=== PATIENT | female | born 1995 | race Hispanic/Latino ===

== ENCOUNTER 2017-06-25 06:13 | Observation (INO) | payer OTHER ==
[2017-06-25 06:42] VITALS: BP 153/72; TEMP 98.9; O2SAT 100
[2017-06-25 07:19] VITALS: RESP 16
[2017-06-25] MEDS ORDERED: Sodium Chloride 0.9% 1,000 ML IV STA (07:32)
--- NOTE | 2017-06-25 07:40 | ED PDOC ---
HPI: Hypertension/Hypotension Time Seen by Provider: 06/25/17 07:07 Chief Complaint (Nursing): Anxiety Chief Complaint (Provider): palpitations History Per: Patient History/Exam Limitations: no limitations Onset/Duration Of Symptoms: Hrs Current Symptoms Are (Timing): Gone Now Additional History Per: Patient Additional Complaint(s): The patient is a 22yo female, rpesents to the ED for evaluation of "heart racing " starting around 2am and lasting a couple hours. She reports she had similar symptoms in the past and 2 years ago, was evaluated and had an echocardiogram, stress test which were both normal. Patient states she usually feels these symptoms when drinking but denies any alcohol consumption today. She reports associated shortness of breath, nausea, an episode of diarrhea, vomiting and fever. She offers no additional medical complaints. Past Medical History Reviewed: Historical Data, Nursing Documentation, Vital Signs Vital Signs: Last Vital Signs Temp 98.9 F 06/25/17 06:36 Pulse 95 H 06/25/17 07:07 Resp 16 06/25/17 07:07 BP 153/72 H 06/25/17 06:36 Pulse Ox 100 06/25/17 07:07 - Medical History PMH: Depression - Surgical History Surgical History: No Surg Hx - Family History Family History: States: No Known Family Hx - Social History Current smoker - smoking cessation education provided: No Alcohol: None Drugs: Denies - Home Medications Home Medications: Ambulatory Orders Medication Instructions Recorded Sertraline [Zoloft] 50 mg PO DAILY 06/25/17 - Allergies Allergies/Adverse Reactions: Allergies Allergy/AdvReac Type Severity Reaction Status Date / Time Penicillins Allergy RASH Verified 06/25/17 06:35 Review of Systems ROS Statement: Except As Marked, All Systems Reviewed And Found Negative Constitutional: Negative for: Fever Cardiovascular: Positive for: Palpitations Respiratory: Positive for: Shortness of Breath Gastrointestinal: Positive for: Nausea, Diarrhea (1 episode). Negative for: Vomiting Physical Exam - Reviewed Nursing Documentation Reviewed: Yes Vital Signs Reviewed: Yes - Physical Exam Appears: Positive for: Non-toxic, No Acute Distress Head Exam: Positive for: ATRAUMATIC, NORMAL INSPECTION, NORMOCEPHALIC Skin: Positive for: Warm, Dry Eye Exam: Positive for: Normal appearance Neck: Positive for: Supple Cardiovascular/Chest: Positive for: Regular Rate, Rhythm, Tachycardia Respiratory: Positive for: Normal Breath Sounds. Negative for: Respiratory Distress Gastrointestinal/Abdominal: Positive for: Soft. Negative for: Tenderness Neurologic/Psych: Positive for: Alert, Oriented. Negative for: Motor/Sensory Deficits - Laboratory Results Result Diagrams: 06/25/17 08:25 06/25/17 08:25 - ECG ECG: Positive for: Interpreted By Me, Viewed By Me ECG Rhythm: Positive for: Sinus Rhythm, Right Bundle Branch Block (incomplete). Negative for: ST/T Changes Rate: 97 O2 Sat by Pulse Oximetry: 100 (RA) Pulse Ox Interpretation: Normal Medical Decision Making Medical Decision Making: Time: 714 Impression: Palpitations Plan: -- Labs -- EKG -- IV Fluids -- Zofran 4mg IV -- CT Chest Reassess Time: 799 Patient to be placed in ED observation pending ER workup. Scribe Attestation: Documented by Sarah Pelaez acting as a scribe for Kristina Mei MD. Provider Attestation: All medical record entries made by the Scribe were at my direction and personally dictated by me. I have reviewed the chart and agree that the record accurately reflects my personal performance of the history, physical exam, medical decision making, and the department course for this patient. I have also personally directed, reviewed, and agree with the discharge instructions and disposition. ED OBSERVATION Date of observation admission: 06/25/17 Time of observation admission: 08:00 - Observation admission statement Patient is being placed in observation because:: Patient with complaints of "heart racing" - Goals of Observation Goals of observation are:: imaging studies, labs results - Progress Note Progress Note: 06/25/17 08:06 Chest x-ray impression: No active disease. 06/25/17 09:36 Patient resting in room, no acute distress. 06/25/17 11:00 --Patient is resting comfortably. Vitals are stable 06/25/17 12:30 --Patient is currently resting, awaiting chest CT results. 06/25/17 14:36 CT CHEST FINDINGS: PULMONARY ARTERIES: Unremarkable. No pulmonary embolism. AORTA: No acute findings. No thoracic aortic aneurysm. LUNGS: Unremarkable. No nodule, mass or pulmonary consolidation. PLEURAL SPACES: Unremarkable. No effusion or pneuomothorax. HEART: Unremarkable. No cardiomegaly. No significant pericardial effusion. LYMPH NODES: No lymphadenopathy. Thoracic inlet is unremarkable. Axillary regions show no evidence of adenopathy. No retrocrural adenopathy is seen. BONES, CHEST WALL: Unremarkable. No fracture or destructive lesion OTHER FINDINGS: Visualized esophagus is unremarkable. Visualized portions of the upper abdomen are within normal limits. IMPRESSION: No CT scan evidence of pulmonary embolism. No evidence of focal alveolar infiltrate. --Patient was given copy of labs and imaging to take to her doctor. 06/25/17 14:43 --Patient was offered crisis evaluation for her anxiety and she declined, stating that she has people at home in [place] to talk to. --Patient is stable for discharge home Disposition - Clinical Impression Clinical Impression: Palpitations - Patient ED Disposition Is Patient to be Admitted: No Counseled Patient/Family Regarding: Studies Performed, Diagnosis, Need For Followup - Disposition Disposition: Routine/Home Disposition Time: 08:00 Condition: STABLE - POA Present On Arrival: None
--- NOTE | 2017-06-25 08:08 | RAD ---
HISTORY: Palpitations COMPARISON: No prior. TECHNIQUE: Chest PA and lateral FINDINGS: LUNGS: No active pulmonary disease. PLEURA: No significant pleural effusion identified. No pneumothorax apparent. CARDIOVASCULAR: Normal. OSSEOUS STRUCTURES: Minor scoliosis is seen. VISUALIZED UPPER ABDOMEN: Normal. OTHER FINDINGS: None. IMPRESSION: No active disease.
[2017-06-25 08:44] LABS: BASO % 0.1 % (0.0-2.0); EOS % 0.2 % (0.0-4.0); HEMATOCRIT 41.8 % (34.0-47.0); LYMPH # 1.4 K/uL (1.0-4.3); LYMPH % 17.2 % (20.0-40.0); MEAN CELL VOLUME 91.3 fl (81.0-99.0); MEAN CORPUSCULAR HEMOGLOBIN 30.1 pg (27.0-31.0); MEAN PLATELET VOLUME 8.4 fl (7.2-11.7); MONO # 0.4 K/uL (0.0-0.8); MONO % 5.1 % (0.0-10.0); NEUT # 6.3 K/uL (1.8-7.0); NEUT % 77.4 % (50.0-75.0); RED CELL DISTRIBUTION WIDTH 13.6 % (11.5-14.5); WHITE BLOOD COUNT 8.1 K/uL (4.8-10.8)
[2017-06-25 08:53] LABS: ALB/GLOB RATIO 1.5 (1.0-2.1); ALKALINE PHOSPHATASE 51 U/L (38-126); ALT/SGPT 33 U/L (9-52); AST/SGOT 28 U/L (14-36); BILIRUBIN,TOTAL 0.5 mg/dl (0.2-1.3); BLOOD UREA NITROGEN 7 mg/dl (7-17); CALCIUM 9.3 mg/dL (8.4-10.2); CARBON DIOXIDE 24 mmol/L (22-30); CHLORIDE 103 mmol/L (98-107); GFR AFRICAN-AMERICAN > 60; GLUCOSE,RANDOM 96 mg/dL (65-105); POTASSIUM 3.5 MMOL/L (3.6-5.0); SODIUM 145 mmol/l (132-148); TOTAL PROTEIN 7.6 G/DL (6.3-8.2)
[2017-06-25 08:54] LABS: RBC URINE 1 /hpf (0-3); URINE BACTERIA OCC (<OCC); URINE BILIRUBIN NEGATIVE (NEGATIVE); URINE BLOOD SMALL (NEGATIVE); URINE COLOR YELLOW (YELLOW); URINE GLUCOSE (UA) NEG (Normal); URINE KETONE NEGATIVE (NEGATIVE); URINE LEUKOCYTE ESTERASE NEG Leu/uL (Negative); URINE PROTEIN NEGATIVE (NEGATIVE); URINE UROBILINOGEN 0.2-1.0 mg/dL (0.2-1.0); WBC URINE 1 /hpf (0-5)
[2017-06-25] MEDS ORDERED: Potassium Chloride 20 mEq ER Tab PO STA (09:00)
[2017-06-25 09:22] VITALS: PULSE 97
[2017-06-25 09:23] LABS: THYROID STIMULATING HORMONE 3.71 mIU/ML (0.46-4.68)
[2017-06-25] MEDS ORDERED: Iodixanol 320 MG/ML 100 ML BOTTLE IV ONE (11:54)
[2017-06-25] MEDS ORDERED: Sodium Chloride 0.9% 50 ML IV ONE (11:55)
--- NOTE | 2017-06-25 14:34 | CT ---
PROCEDURE: CT Chest with contrast (Pulmonary Angiogram) HISTORY: Palpitations COMPARISON: None available. TECHNIQUE: Axial computed tomography images were obtained of the chest in the pulmonary arterial phase of enhancement. Coronal and sagittal reformatted images were created and reviewed. Intravenous contrast dose: 100 milliliters visi 320 Radiation dose: Total exam DLP = 215 mGy-cm. This CT exam was performed using one or more of the following dose reduction techniques: Automated exposure control, adjustment of the mA and/or kV according to patient size, and/or use of iterative reconstruction technique. FINDINGS: PULMONARY ARTERIES: Unremarkable. No pulmonary embolism. AORTA: No acute findings. No thoracic aortic aneurysm. LUNGS: Unremarkable. No nodule, mass or pulmonary consolidation. PLEURAL SPACES: Unremarkable. No effusion or pneuomothorax. HEART: Unremarkable. No cardiomegaly. No significant pericardial effusion. LYMPH NODES: No lymphadenopathy. Thoracic inlet is unremarkable. Axillary regions show no evidence of adenopathy. No retrocrural adenopathy is seen. BONES, CHEST WALL: Unremarkable. No fracture or destructive lesion OTHER FINDINGS: Visualized esophagus is unremarkable. Visualized portions of the upper abdomen are within normal limits. IMPRESSION: No CT scan evidence of pulmonary embolism. No evidence of focal alveolar infiltrate.
--- NOTE | 2017-06-26 08:13 | CARD ---
APPROVED REPORT EKG Measurement Heart [id number] NC [id number] <Conclusion> Normal sinus rhythm Incomplete right bundle branch block Borderline ECG
== END 2017-06-25 15:08 | disposition home or self-care (01) ==
LOC: H.ER 06:13 → H.EROBSV 11:08
PROVIDERS: ADMIT Emergency Medicine; ATTEND Emergency Medicine
DX: R00.2 Palpitations (principal); F41.9 Anxiety disorder, unspecified; I10 Essential (primary) hypertension; I95.9 Hypotension, unspecified; Z79.899 Other long term (current) drug therapy; F32.9 Major depressive disorder, single episode, unspecified
CPT/HCPCS: 71020; 71275; 80053; 81003; 81025; 84443; 84484; 85025; 85378; 93005; 99282; G0378; J2405; J7040; Q9967